=== PATIENT | male | born 1950 | race Caucasian/White ===

== ENCOUNTER → 2016-06-23 | Outpatient (CLI) | payer MEDICARE, BC ==
--- NOTE | 2016-06-23 09:14 | MR ---
EXAMINATION TYPE: MR shoulder LT wo con DATE OF EXAM: 06/23/2016 9:04 AM COMPARISON: NONE HISTORY: Left shoulder pain TECHNIQUE: Multiplanar, multisequence imaging of the left shoulder is performed without contrast. FINDINGS: There is intrasubstance signal within the distal portion of the supraspinatus and infraspinatus tendo ns. Findings compatible with tendinosis. Non through thickness partial intrasubstance tear of the dis azeb margin of the supraspinatus tendon with no retraction. Abnormal signal within the anterior superior labrum suggestive of labral tear. Biceps anchor and intr acapsular portion of the biceps tendon have a normal appearance. Biceps tendon is situated within the bicipital groove. There is a spur extending off the distal clavicle which results in significant mass effect upon the s upraspinatus tendon and muscle compatible with impingement. Cystic changes involving the head of the humerus likely post arthritic. IMPRESSION: 1. Tendinosis involving the supraspinatus and infraspinatus tendons with partial intrasubstance tear distal supraspinatus tendon. No through thickness tear or retraction. 2. Anterior superior labral tear 3. Impingement secondary to a spur extending off the distal clavicle.
== END ==
LOC: RADMRIMAIN 08:13
PROVIDERS: ATTEND Family Medicine
DX: S43.432A Superior glenoid labrum lesion of left shoulder, initial encounter (principal); M75.92 Shoulder lesion, unspecified, left shoulder

== ENCOUNTER → 2016-07-22 | Outpatient (CLI) | payer MEDICARE, BC ==
--- NOTE | 2016-07-22 11:34 | ECHOS ---
DATE OF SERVICE: 07/22/2016 AGE: 65Y SEX: M HT: 70 WT: 175 lbs. Protocol Rui: X Others: Stress Echo Stage: IV Dur. of Exercise: 11:30 *Heart Rate Blood Pressure *Rest: 78 Rest: 153/56 * *Max. Achieved: 122 Maximum BP: 191/62 85% PMHR: 133 100% PMHR: 156 *METS: 12 INDICATIONS: MEDICATIONS: Zoloft, Flexeril, tramadol. CLINICAL INFORMATION: Patient is on Zoloft, Flexeril, Tramadol. History of palpitations. Family history of coronary artery disease. History of smoking 1-1/2 packs of cigarettes a day for 35 years. Resting ECG shows sinus rhythm rate of blood 78 beats per minute, PA interval of 0.16, QRS 0.08, normal ST-T waves. Frequent PACs are noted. Utilizing a standard Rui protocol, a symptom limited treadmill test was performed. Patient exercised for a total of 11 minutes and 30 seconds, attained a peak heart rate of 122 beats, which is approximately 75% predicted maximum heart rate without reaching the 85% predicted maximum heart rate which is 133 beats per minute. Exercise test was terminated because of fatigue and shortness of breath, could not able to walk any longer. No ST segment deviations. No cardiac arrhythmias are noted throughout the study. Baseline images show normal thickening and contractility. Postexercise images shows improved contractility and thickening. Patient reached a maximum heart rate of 78% predicted maximum heart rate which is still incomplete but no evidence of any ( ) wall motion abnormalities noted at this level. 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 At 78% of predicted maximum heart rate, patient's study is normal, but an incomplete study. Patient's physical fitness is excellent reached a maximum activity level of 12 METs.
== END | disposition home or self-care (01) ==
LOC: RADNMMAIN 09:05
PROVIDERS: ATTEND Family Medicine
DX: R06.00 Dyspnea, unspecified (principal); Z88.0 Allergy status to penicillin; Z82.49 Family history of ischemic heart disease and other diseases of the circulatory system
CPT/HCPCS: 93017; 93350

== ENCOUNTER → 2018-02-26 | Outpatient (CLI) | payer MEDICARE, BC ==
[2018-02-26 11:19] LABS: Blood Urea Nitrogen 26 mg/dL (9-20)
--- NOTE | 2018-02-26 21:09 | MR ---
MRI CERVICAL SPINE: CLINICAL HISTORY: History of surgery on neck with cervical disc disease and pain. TECHNIQUE: Multiplanar, multisequence imaging of the cervical spine is performed without IV contrast. COMPARISON: None. FINDINGS: There is mild to moderate mucosal thickening involving the visualized portion of right maxi llary sinus on sagittal image 1. Sagittal images of the cervical spine show the craniocervical juncti on to appear within normal limits. The cervical and upper thoracic spinal cord is normal in course, caliber, and signal. There is slight grade 1 retrolisthesis of C2 on C3. The vertebral body heights are normal. Mild to moderate multilevel disc space narrowing and spurring is seen most prominent at C 6-C7 level. Multilevel small posterior disc herniations are effacing the anterior thecal sac extendin g into the upper thoracic spine on sagittal images. The bone marrow signal intensity is overall sligh tly heterogeneous. Axial images at C2-C3 level shows left paracentral disc protrusion effacing anterior thecal sac, bila teral neural foramina are patent on axial image 52. Axial images at C3-C4 level shows broad-based right paracentral disc protrusion effacing anterolatera l thecal sac and causing asymmetric [id number] right-sided neural foraminal narrowing. Left-juan pablo ed neural foramen is patent. Axial images at C4-C5 level show uncovertebral facet degenerative changes bilaterally causing moderat e left greater than right bilateral neural foraminal narrowing. Spinal canal is preserved. Axial images at C5-C6 level showed broad based posterior disc protrusion effacing anterior thecal sac and causing moderate to advanced right greater than left bilateral neural foraminal narrowing. Axial images at C6-C7 level shows broad-based lobulated disc protrusion effacing anterior thecal sac nearly up to ventral surface of spinal cord on axial image 19 and causing moderate left greater than right bilateral neural foraminal narrowing. Axial images at C7-T1 level shows central disc protrusion mildly facing anterior thecal sac with asym metric mild to moderate left-sided neural foraminal narrowing. Right-sided neural foramen is patent. IMPRESSION: Multilevel degenerative changes of cervical spine as detailed above, most prominent findi ngs are noted at C5-C6 and C6-C7 levels.
--- NOTE | 2018-02-26 21:56 | MR ---
EXAMINATION TYPE: MR neck wo/w con DATE OF EXAM: 02/26/2018 COMPARISON: None HISTORY: Dysphasia and neck mass. CONTRAST: Standard multiplanar, multisequence MRI departmental protocol utilizing 7.5 mL intravenous Gadavist g adolinium contrast. Imaging is performed of the neck without and with IV contrast. FINDINGS: Evaluation note is suboptimal as there is significant artifact degradation present. In julia tion location of mass not provided. No vitamin E marker is placed to help localize. No suspicious pre vertebral swelling is present. Thyroid gland is atrophic or small in size. There is moderate biapical pleural/parenchymal scarring. Slight asymmetry at level of left aryepiglottic fold is noted. No definitive greater than 1 cm neck adenopathy is seen. Visualized portion of parotid and submandibu lar glands is felt within normal limits. Patient is very little fat making evaluation suboptimal. IMPRESSION: Asymmetric thickening left aryepiglottic fold, correlation with contrast-enhanced neck CT is advised.
== END | disposition home or self-care (01) ==
LOC: RADMRIMAIN 10:43
PROVIDERS: ATTEND Otolaryngology Otolaryngology/Facial Plastic Surgery
DX: M99.71 Connective tissue and disc stenosis of intervertebral foramina of cervical region (principal); M50.23 Other cervical disc displacement, cervicothoracic region; M47.812 Spondylosis without myelopathy or radiculopathy, cervical region; R93.89 Abnormal findings on diagnostic imaging of other specified body structures
CPT/HCPCS: 82565; 84520; 70543; 72141; 36415; A9585

== ENCOUNTER → 2019-03-16 | Outpatient (CLI) | payer MEDICARE, BC ==
[2019-03-16 11:22] LABS: African American GFR (CKD) >90 (>60 ml/min/1.73 sqM); Blood Urea Nitrogen 26 mg/dL (9-20); Non-African American GFR(CKD) 84 (>60 ml/min/1.73 sqM)
--- NOTE | 2019-03-16 14:30 | NM ---
EXAMINATION TYPE: NM bone scan whole body DATE OF EXAM: 03/16/2019 COMPARISON: NONE HISTORY: Prostate carcinoma Delayed whole-body scanning was performed following the injection of 25 mCi Tc 99m MDP. Images acqui red 3 hours post injection. FINDINGS: There is intense focal uptake noted at the distal right clavicle/AC joint which could be degenerative in nature or posttraumatic in nature however metastatic disease is not excluded. The remainder of th e visualized axial and appendicular skeleton fail to demonstrate no evidence for additional hyperinte nse lesion. Mild degenerative uptake on left shoulder, lumbar spine and bilateral wrists and hands. IMPRESSION: There is intense focal uptake noted at the distal right clavicle/AC joint which could be degenerative in nature or posttraumatic in nature however metastatic disease is not excluded.
--- NOTE | 2019-03-16 14:46 | CT ---
EXAMINATION TYPE: CT pelvis w con DATE OF EXAM: 03/16/2019 COMPARISON: None HISTORY: Recent diagnosis of prostate cancer. CT DLP: 379.2 mGycm Automated exposure control for dose reduction was used. TECHNIQUE: Helical acquisition of images through the pelvis CONTRAST: Performed with Oral Contrast and with IV Contrast, patient injected with 100 mL of Isovue 300. FINDINGS: A relative lack of fat within the pelvis could limit evaluation, oral contrast is not cours ed overweight through the bowel. Some increased attenuation within the pelvic fat may be postprocedur al. LUNG BASES: Not included AORTA: No significant abnormality is appreciated. LIVER/GB: Incompletely evaluated PANCREAS: Incompletely seen SPLEEN: Not completely evaluated ADRENALS: No significant abnormality is seen. KIDNEYS: Large cystic focus associated with the posterior aspect of the left kidney measures 6.5 cm a nd likely represents simple cyst with smaller cortical cysts suspected in the posterior right kidney measuring 15 mm, kidneys are incompletely evaluated REPRODUCTIVE ORGANS: Prostate is enlarged and shows some associated calcification BOWEL: No significant abnormality is seen. FREE AIR: No Free Air visible. ASCITES: None visible. PELVIC ADENOPATHY: None visualized. RETROPERITONEAL ADENOPATHY: No Retroperitoneal Adenopathy visible. URINARY BLADDER: Bladder wall thickening may be due to chronic outlet obstruction or lack of distent ion, correlate to exclude cystitis OSSEOUS STRUCTURES: Degenerative disc changes are present at the lower lumbar spine, ankylosis prese nt at L3-4, there is facet arthropathy change, there is a spinal curvature. IMPRESSION: FINDINGS WITHIN THE URINARY BLADDER AND PROSTATE IS DESCRIBED. ADDITIONAL FINDINGS ABOVE.
== END | disposition home or self-care (01) ==
LOC: RADNMMAIN 10:29
PROVIDERS: ATTEND Urology
DX: C61 Malignant neoplasm of prostate (principal); Z88.1 Allergy status to other antibiotic agents
CPT/HCPCS: 82565; 84520; 72193; 36415; 78306; A9503; Q9967

== ENCOUNTER → 2019-04-17 | Outpatient (CLI) | payer MEDICARE, BC ==
[2019-04-17 11:28] LABS: Basophils % (A) 0 %; Eosinophils # (A) 0.1 k/uL (0-0.7); Eosinophils % (A) 1 %; HGB 15.3 gm/dL (13.0-17.5); Lymphocytes # (A) 1.4 k/uL (1.0-4.8); Lymphocytes % (A) 24 %; MCH 30.4 pg (25.0-35.0); MCHC 33.2 g/dL (31.0-37.0); MCV 91.7 fL (80.0-100.0); Mean Platelet Volume 7.2; Monocytes # (A) 0.3 k/uL (0-1.0); Monocytes % (A) 6 %; Neutrophils % (A) 68 %; Platelet Count 245 k/uL (150-450); RBC 5.02 m/uL (4.30-5.90); RDW 12.6 % (11.5-15.5); WBC 5.8 k/uL (3.8-10.6)
== END | disposition home or self-care (01) ==
LOC: LABPAT 10:35
PROVIDERS: ATTEND Urology
DX: Z01.812 Encounter for preprocedural laboratory examination (principal); C61 Malignant neoplasm of prostate; R53.83 Other fatigue
CPT/HCPCS: 36415; 85025; 86850; 86900; 86901

== ENCOUNTER 2019-04-24 11:13 | Day surgery (SDC) | payer MEDICARE, BC ==
[2019-04-20 13:30] VITALS: BMI 23.0
[~2019-04-24 11:13] MED LIST: DEXAMETHASONE SOD PHOSPHATE 10 MG/ML 1 ML VIAL IV ONE; HEPARIN SODIUM,PORCINE 5,000 UNIT/ML 1 ML VIAL SQ ONE; HYDROmorphone 0.5 MG/0.5 ML SYRINGE IVP PRN; LIDOCAINE 1% 20 ML VIAL (10MG/ML) FOR IV START INTRADERMA PRN; ONDANSETRON 4 MG/2 ML VIAL IVP ONE
--- NOTE | 2019-04-24 11:40 | P.GSHP ---
History of Present Illness H&P Date: 04/19/19 Chief Complaint: Prostate cancer The patient is a 68-year-old white male whose PSA level was 6.4 in November 2017. His PSA level increased to 7.2 in December 2018. RITCHIE revealed right-sided firmness. He underwent a prostate ultrasound, revealing a prostate volume of 31 mL. A total of 12 biopsies were performed. A biopsy at the left lateral base showed [place] 7 (3+4) adenocarcinoma (15%). 3 of 6 right-sided biopsies showed evidence of prostate cancer ([place] 8 at right lateral base, [place] 7 at right apex, and [place] 6 at right lateral apex). He underwent a computed tomography scan and bone scan for staging purposes, which demonstrated no evidence of metastases. Alternative treatment options were reviewed in detail with the patient and his . He has elected to undergo a robotic-assisted laparoscopic prostatectomy (RALP) with bilateral pelvic lymphadenectomy. A partial nerve sparing procedure will be performed on the left, but he is not a candidate for a right-sided nerve sparing procedure. - Constitutional Constitutional: Reports chills, Reports fever - EENT Ears, nose, mouth and throat: Reports nasal congestion - Genitourinary (Male) Genitourinary: Reports incontinence, Reports urinary frequency, Denies erectile dysfunction Past Medical History Past Medical History: No Reported History History of Any Multi-Drug Resistant Organisms: None Reported Past Surgical History: Hernia Repair, Orthopedic Surgery Additional Past Surgical History / Comment(s): sinus surgery, back surgery ,knee surgery ,manuelito shoulder, c-spine fusion Past Psychological History: Depression Smoking Status: Current every day smoker Past Alcohol Use History: None Reported Past Drug Use History: None Reported Medications and Allergies Home Medications Medication Instructions Recorded Confirmed Type Amoxicillin/Potassium Clav 1 each PO Q12HR #20 tab 12/03/13 Rx [Augmentin 875-125 Tablet] LORazepam [Ativan] 1 mg PO BID #20 tab 12/03/13 Rx Meclizine [Antivert] 25 mg PO TID #20 tab 12/03/13 Rx Ondansetron Odt [Zofran Odt] 4 mg PO Q8HR PRN #10 tab 12/03/13 Rx Sertraline [Zoloft] 50 mg PO DAILY 12/03/13 12/03/13 History Allergies Allergy/AdvReac Type Severity Reaction Status Date / Time tetracycline [Tetracycline] Allergy Swelling Verified 12/03/13 17:39 Surgical - Exam - General well developed, well nourished, no distress - Neck no masses, trachea midline - Respiratory normal respiratory effort, clear to auscultation - Cardiovascular Rhythm: regular Abnormal Heart Sounds: no systolic murmur, no diastolic murmur, no rub, no S3 Gallop, no S4 Gallop, no click, no other - Abdomen Abdomen: soft, non tender, no guarding, no rigid, no rebound - Genitourinary normal penis with no external lesions, testicles non-tender - Rectum Rectum: normal sphincter tone, no masses, other (Prostate moderately enlarged with right-sided firmness) - Psychiatric oriented to time, oriented to person, oriented to place, speech is normal, mem ory intact Assessment and Plan (1) Malignant neoplasm of prostate Status: Acute Code(s): C61 - MALIGNANT NEOPLASM OF PROSTATE SNOMED Code(s): 906115204 Plan: RALP with bilateral pelvic lymphadenectomy. The procedure has been reviewed in detail with the patient and his . Potential risks were discussed, which include anesthesia, bleeding, infection, lymphocele, bowel injury, neurovascular injury, urinary leak, vesical neck contracture, and urethral stricture. The possible need to convert to an open procedure has been discussed. He understands that he a candidate only for a unilateral nerve sparing procedure, and that he will likely experience postoperative erectile dysfunction. The possibility of post prostatectomy urinary incontinence was discussed in detail, and he is aware that this may be permanent. He is also aware of the possible need for adjuvant therapy.
[2019-04-24] MEDS: LACTATED RINGERS 1,000 ML IV SCH (11:53)
[2019-04-24] MEDS ORDERED: GLYCOPYRROLATE 0.2 MG/ML 2 ML VIAL ONE (12:28)
[2019-04-24] MEDS ORDERED: MIDAZOLAM 2 MG/2 ML VIAL ONE (12:28)
[2019-04-24] MEDS ORDERED: LIDOCAINE 1% INJ 10MG/ML (20 ML MDV) ONE (12:28)
[2019-04-24] MEDS ORDERED: NEOSTIGMINE 1 MG/ML 10 ML VIAL ONE (12:28)
[2019-04-24] MEDS ORDERED: ROCURONIUM BROMIDE 10 MG/ML 10 ML VIAL IV ONE (12:28)
[2019-04-24] MEDS ORDERED: HYDROmorphone (PF) 1 MG/ML ONE (12:28)
[2019-04-24] MEDS ORDERED: PROPOFOL 10 MG/ML 20 ML VIAL IV ONE (12:28)
[2019-04-24] MEDS ORDERED: KETAMINE 10 MG/ML 20 ML VIAL ONE (12:28)
[2019-04-24] MEDS ORDERED: fentaNYL (PF) 50 MCG/ML 2 ML AMP ONE (12:28)
[2019-04-24] MEDS ORDERED: BUPIVACAINE (PF) 0.25% 30 ML VIAL SQ ONE (13:20)
[2019-04-24] MEDS ORDERED: LACTATED RINGERS 1,000 ML IV ONE (15:49)
--- NOTE | 2019-04-24 16:19 | P.OP ---
Date of Procedure: 04/24/19 Preoperative Diagnosis: Adenocarcinoma of the Prostate, clinical stage [id number] Postoperative Diagnosis: Same Procedure(s) Performed: Robotic-assisted laparoscopic prostatectomy (RALP) with bilateral pelvic lymphadenectomy Anesthesia: HOMAR Surgeon: Martir Finley Estimated Blood Loss (ml): 50 IV fluids (ml): 1,500 Pathology: other (Prostate, seminal vesicles, pelvic lymph nodes) Condition: stable Disposition: PACU Indications for Procedure: The patient is a 68-year-old white male whose PSA level was 6.4 in November 2017. His PSA level increased to 7.2 in December 2018. RITCHIE revealed right-sided firmness. He underwent a prostate ultrasound, revealing a prostate volume of 31 mL. A total of 12 biopsies were performed. A biopsy at the left lateral base showed [place] 7 (3+4) adenocarcinoma (15%). 3 of 6 right-sided biopsies showed evidence of prostate cancer ([place] 8 at right lateral base, [place] 7 at right apex, and [place] 6 at right lateral apex). He underwent a computed tomography scan and bone scan for staging purposes, which demonstrated no evidence of metastases. Alternative treatment options were reviewed in detail with the patient and his . He has elected to undergo a robotic-assisted laparoscopic prostatectomy (RALP) with bilateral pelvic lymphadenectomy. A partial nerve sparing procedure will be performed on the left, but he is not a candidate for a right-sided nerve sparing procedure. Operative Findings: No evidence of extraprostatic disease. Description of Procedure: The patient was taken in the operating room and placed in the dorsal lithotomy position, with his legs supported in Ruddy stirrups. He was carefully positioned on a beanbag for stability. The abdomen and external genitalia were prepped and draped sterilely. A De catheter was inserted. The Veress needle was passed through the anterior abdominal wall immediately cephalad to the umbilicus, and insufflation was performed to a pressure of 20 mm Hg. Once insufflation was performed, the Veress needle was removed and a supraumbilical incision was made, through which a 12 mm camera port was placed. Under camera guidance, 3 8 mm robotic ports were placed, 2 on the left and one on the right. An additional 12 mm port was placed on the right lateral side for use as an virtual customer assistant port. A 5 mm port was placed to the right of the camera port for suction. The patient was placed in Trendelenburg position, and docking was then performed to the da Salbador system utilizing a 4-arm approach. The abdomen was examined. The sigmoid colon was mobilized out of the pelvis. The peritoneum was incised lateral to the medial umbilical ligaments bilaterally, exposing the pubis. The peritoneum was then incised across the midline, allowing the bladder flap to be taken down. The endopelvic fascia was opened bilaterally, and muscular attachments from the urogenital diaphragm were swept away from the prostate. Bilateral pelvic lymphadenectomies were performed in the standard fashion. The peritoneal incisions were extended in a cephalad direction, and the vas deferens were divided bilaterally. Margins of dissection were the bifurcation of the iliac vessels proximally, the circumflex iliac vein distally, the external iliac artery laterally, and the obturator nerve medially. A combination of sharp and blunt dissection was used. Care was taken to avoid any neurovascular injury, a nd the use of monopolar electrocautery was avoided immediately adjacent to neurovascular structures. The lymphatic package was clipped distally. No enlarged lymph nodes were encountered. There were no complications. The vesical neck was incised transversely, down to the lumen. The De catheter was brought out through the anterior vesical neck incision and was used for traction. The posterior aspect of the vesical neck was incised, such that the full-thickness of the vesical neck was divided. The anterior layer of the Denonvilliers fascia was incised, exposing the vas deferens. Each were isolated and divided. Next, each of the seminal vesicles were dissected away from adjacent tissues, and vascular attachments were cauterized and divided. The posterior leaf of Denonvilliers fascia was incised transversely, allowing entry into the plane between the prostate and rectum. With lateral spreading, this plane was developed down to the apex. This exposed the lateral vascular pedic les bilaterally. These were clipped and divided in an antegrade fashion, down to the apex. The use of electrocautery was avoided on the left to prevent thermal damage to the nerves. No attempt was made to preserve the neurovascular bundle on the right. A partial nerve sparing procedure was performed on the left. The remaining apical attachments were swept away from the prostate. The dorsal venous complex was incised, as well as periurethral tissue. At this point, only the urethra remained intact. This was transected immediately distal to the prostatic apex using cold scissors. The specimen was placed within a specimen bag. The dorsal venous complex was sutured using a V-Loc suture in a running fashion. The suture was passed through the periosteum of the pubis periurethral support. A second V-Loc suture was then used to place the Charlie stitch, incorporating the rhabdosphincter and the edge of Denonvilliers fascia. This allowed the bladder to be taken down to the urethra, leaving the vesical neck immediately adjacent to the urethra. The vesicourethral anastomosis was then performed using a V-Loc suture in a running fashion. After completing the anastomosis, an 18-[place] De catheter was placed and approximately 150 mL of 0.9 normal saline were instilled into the bladder. No extravasation of irrigant from the vesicourethral anastomosis was noted. Hemostasis was noted at this time to be excellent, and it was thus felt that a drain was unnecessary. Tisseel was sprayed into the pelvis over the vascular pedicles, dorsal vein, and vesicourethral anastomosis. The patient was returned to the supine position. Undocking was performed, and the specimen bag sutures were passed through the camera port. After removing all the ports and allowing all of the CO2 to be released from the peritoneal cavity, the camera port incision was enlarged to allow removal of the surgical specimen. The fascia of this incision was then closed using 0 Vicryl suture in an interrupted [id number] fashion. Each of the skin incisions were then closed using 4-0 Monocryl suture in a subcuticular fashion. Marcaine was injected at each of the incision sites. Dermabond was applied to each incision. The De catheter was connected to gravity drainage. All sponge and needle counts were correct. The patient tolerated the procedure well was taken to the recovery room in stable condition.
[2019-04-24] MEDS ORDERED: ONDANSETRON 4 MG/2 ML VIAL IVP PRN (16:20)
[2019-04-24] MEDS ORDERED: MAG HYDROX/AL HYDROX/SIMETH 30 ML CUP PO PRN (16:20)
[2019-04-24 16:34] VITALS: RESP 16
[2019-04-24] MEDS: KETOROLAC 30 MG/ML 1 ML VIAL IVP PRN (17:59)
[2019-04-24] MEDS: HYDROmorphone 1 MG/ML 1 ML SYRINGE IVP PRN (19:55)
[2019-04-24] MEDS: DEXTROSE 5%-0.45% NACL 1,000 ML IV SCH (19:55)
[2019-04-24] MEDS: HEPARIN SODIUM,PORCINE 5,000 UNIT/ML 1 ML VIAL SQ SCH (19:55)
[2019-04-25] MEDS: KETOROLAC 30 MG/ML 1 ML VIAL IVP PRN
[2019-04-25] MEDS: DEXTROSE 5%-0.45% NACL 1,000 ML IV SCH ×2 (01:16→05:21)
[2019-04-25] MEDS: HYDROmorphone 1 MG/ML 1 ML SYRINGE IVP PRN ×2 (02:33→05:20)
[2019-04-25] MEDS ORDERED: HYDROcodone/APAP 5-325MG 1 EACH TAB PO PRN (08:27)
[2019-04-25] MEDS: HEPARIN SODIUM,PORCINE 5,000 UNIT/ML 1 ML VIAL SQ SCH (08:32)
[2019-04-25] MEDS: HYDROcodone/APAP 5-325MG 1 EACH TAB PO PRN ×2 (08:44→12:24)
[2019-04-25] MEDS ORDERED: SERTRALINE 50 MG TAB PO SCH (09:00)
[2019-04-25 09:03] VITALS: BP 133/68; PULSE 59; TEMP 98.2
--- NOTE | 2019-04-25 17:24 | P.DS ---
Providers Expected date of discharge: 04/25/19 Attending physician: Martir Finley Primary care physician: Dimitris Brisenolo - Discharge Diagnosis(es) (1) Malignant neoplasm of prostate Status: Acute Hospital Course: On the day of admission, the patient underwent an uncomplicated robotic-assisted laparoscopic prostatectomy with bilateral pelvic lymphadenectomy. The perioperative course was unremarkable. He remained afebrile with stable vital signs. The De catheter drained clear yellow urine. The incisions were intact, with minimal serous drainage from the supraumbilical incision. On the first postoperative day, the patient reported gas pains which were relieved by belching. He tolerated diet, and ambulated without difficulty. His pain was controlled with oral analgesics. Procedures: RALP with bilateral pelvic lymphadenectomy on 04/24/2019 Patient Condition at Discharge: Good Plan - Discharge Summary Discharge Rx Participant: Yes New Discharge Prescriptions: New Ciprofloxacin HCl [Cipro] 250 mg PO Q12HR #6 tablet Hydrocodone/Acetaminophen [[place] 5-325] 1 - 2 each PO Q4HR PRN #6 tab PRN Reason: Pain No Action Sertraline [Zoloft] 50 mg PO QAM Cyclobenzaprine [Flexeril] 10 mg PO BID Meloxicam 7.5 mg PO BID Discharge Medication List Sertraline [Zoloft] 50 mg PO QAM 12/03/13 [History] Cyclobenzaprine [Flexeril] 10 mg PO BID 04/20/19 [History] Meloxicam 7.5 mg PO BID 04/20/19 [History] Ciprofloxacin HCl [Cipro] 250 mg PO Q12HR #6 tablet 04/25/19 [Rx] Hydrocodone/Acetaminophen [[place] 5-325] 1 - 2 each PO Q4HR PRN #6 tab 04/25/19 [Rx] Follow up Appointment(s)/Referral(s): Martir Finley MD [STAFF PHYSICIAN] - 05/04/19 1:20 pm ( ) Patient Instructions/Handouts: De Catheter Placement and Care (DC), Robot Assisted Laparoscopic Prostatectomy (DC) Activity/Diet/Wound Care/Special Instructions: Discharge home with De catheter. Instruct patient to use overnight drainage bag as well as urinary leg bag. Okay to shower. Diet as tolerated. No lifting, driving, or strenuous activity. Reassure patient that abdominal wall ecchymosis and penoscrotal swelling are normal. Instruct patient to begin takin g antibiotics one day prior to De catheter removal. Discharge Disposition: HOME SELF-CARE
== END 2019-04-25 15:06 | disposition home or self-care (01) ==
LOC: OR 11:13 → 4SSUR 16:13 → OR 04-25 15:06
PROVIDERS: ATTEND Urology
DX: C61 Malignant neoplasm of prostate (principal); F17.210 Nicotine dependence, cigarettes, uncomplicated; F32.9 Major depressive disorder, single episode, unspecified; Z79.899 Other long term (current) drug therapy; Z88.1 Allergy status to other antibiotic agents; Z98.890 Other specified postprocedural states; Z98.1 Arthrodesis status
CPT/HCPCS: 88307; 88309; 55866; 38571; C1762; J2250; J1644 ×2; J1100; J2710; J0690; J2405; J2001; J3010; J1885 ×2; J1170 ×3; J2704; 86850; 86900; 86901

== ENCOUNTER → 2019-05-30 | Outpatient (CLI) | payer MEDICARE, BC | END | disposition home or self-care (01) | LOC: LABWHC1 09:26 | PROVIDERS: ATTEND Urology | DX: C61 Malignant neoplasm of prostate (principal) | CPT/HCPCS: 36415; 84153 ==

== ENCOUNTER → 2019-08-17 | Outpatient (CLI) | payer MEDICARE, BC ==
[2019-08-17 11:51] LABS: Basophils % (A) 1 %; Eosinophils # (A) 0.1 k/uL (0-0.7); Eosinophils % (A) 1 %; HCT 46.1 % (39.0-53.0); HGB 14.5 gm/dL (13.0-17.5); Lymphocytes # (A) 1.8 k/uL (1.0-4.8); Lymphocytes % (A) 27 %; MCH 27.8 pg (25.0-35.0); MCHC 31.4 g/dL (31.0-37.0); MCV 88.7 fL (80.0-100.0); Mean Platelet Volume 6.8; Monocytes # (A) 0.3 k/uL (0-1.0); Monocytes % (A) 5 %; Neutrophils # (A) 4.4 k/uL (1.3-7.7); Neutrophils % (A) 65 %; Platelet Count 285 k/uL (150-450); RDW 14.8 % (11.5-15.5); WBC 6.8 k/uL (3.8-10.6)
[2019-08-17 12:20] LABS: African American GFR (CKD) >90 (>60 ml/min/1.73 sqM); Anion Gap 8 mmol/L; Blood Urea Nitrogen 23 mg/dL (9-20); Calcium 9.3 mg/dL (8.4-10.2); Carbon Dioxide 28 mmol/L (22-30); Chloride 103 mmol/L (98-107); Glucose 104 mg/dL (74-99); Non-African American GFR(CKD) >90 (>60 ml/min/1.73 sqM); Potassium 4.1 mmol/L (3.5-5.1); Sodium 139 mmol/L (137-145)
== END | disposition home or self-care (01) ==
LOC: LABPAT 10:32
PROVIDERS: ATTEND Urology
DX: Z01.818 Encounter for other preprocedural examination (principal); D49.4 Neoplasm of unspecified behavior of bladder
CPT/HCPCS: 80048; 85025

== ENCOUNTER 2019-08-18 12:30 | Day surgery (SDC) | payer MEDICARE, BC ==
[2019-08-17 09:22] VITALS: BMI 23.7
--- NOTE | 2019-08-17 10:23 | P.GSHP ---
History of Present Illness H&P Date: 08/17/19 Chief Complaint: Bladder outflow obstruction The patient is a 68-year-old white male whose PSA level was 6.4 in November 2017. His PSA level increased to 7.2 in December 2018. RITCHIE revealed right-sided firmness. He underwent a prostate ultrasound, revealing a prostate volume of 31 mL. A total of 12 biopsies were performed. A biopsy at the left lateral base showed [place] 7 (3+4) adenocarcinoma (15%). 3 of 6 right-sided biopsies showed evidence of prostate cancer ([place] 8 at right lateral base, [place] 7 at right apex, and [place] 6 at right lateral apex). He underwent a computed tomography scan and bone scan for staging purposes, which demonstrated no evidence of metastases. He underwent a robotic-assisted laparoscopic prostatectomy (RALP) with bilateral pelvic lymphadenectomy on 04/24/2019. He has recovered well from surgery, but has required treatment for 2 Klebsiella UTIs. He reports excellent continence, but he recently presented back with intermittent obstructive voiding symptoms and he was found to have a 1 cm polypoid lesion arising from the right vesical neck. He now comes for excision of this lesion using the Holmium laser. - Constitutional Constitutional: Denies chills, Denies fever - Genitourinary (Female) Genitourinary: Reports urgency, Denies dysuria Past Medical History Past Medical History: Cancer, Musculoskeletal Disorder, Osteoarthritis (OA), Prostate Disorder Additional Past Medical History / Comment(s): Squamous cell cancer leg. Prostate Cancer w/ surg 04/24/19; having diff urinating currently. 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 Pineda abd hernia's w/ mesh. Rhizotomy, pain procedures. 04/24/19 Robotic Prostatectomy w/ pineda pelvic lymph node exc. Past Anesthesia/Blood Transfusion Reactions: Previous Problems w/ Anesthesia, Motion Sickness Additional Past Anesthesia/Blood Transfusion Reaction / Comment(s): Was mean, angry w/ personality changes after prostate surg. Smoking Status: Current every day smoker - Past Family History Father Family Medical History: Cancer Additional Family Medical History / Comment(s): lymphoma Medications and Allergies Home Medications Medication Instructions Recorded Confirmed Type Sertraline [Zoloft] 50 mg PO QAM 12/03/13 08/17/19 History Cyclobenzaprine [Flexeril] 10 mg PO BID 04/20/19 08/17/19 History Meloxicam 7.5 mg PO BID 04/20/19 08/17/19 History Multivitamins, Thera [Multivitamin 1 tab PO DAILY 08/17/19 08/17/19 History (formulary)] Allergies Allergy/AdvReac Type Severity Reaction Status Date / Time tetracycline [Tetracycline] Allergy Swelling Verified 08/17/19 08:51 Surgical - Exam - General well developed, well nourished, no distress - Respiratory normal respiratory effort - Abdomen Abdomen: soft, non tender, no guarding, no rigid, no rebound - Genitourinary normal penis with no external lesions, testicles non-tender - Psychiatric oriented to time, oriented to person, oriented to place, speech is normal, memory intact Assessment and Plan (1) Neoplasm of unspecified behavior of bladder Status: Acute Code(s): D49.4 - NEOPLASM OF UNSPECIFIED BEHAVIOR OF BLADDER SNOMED Code(s): 714761489 Plan: Cystoscopy, transurethral resection of vesical neck tumor. The lesion arises from the right lateral vesical neck and essentially functions as a flap valve, causing intermittent obstruction. I explained to the patient that any vesical neck surgery following a radical prostatectomy may result in urinary incontinence. The procedure will be performed using the Holmium laser rather than the resectoscope, as I believe it will be less traumatic and less likely to result in incontinence.
[~2019-08-18 12:30] MED LIST changes: -DEXAMETHASONE SOD PHOSPHATE 10 MG/ML 1 ML VIAL IV ONE; -HEPARIN SODIUM,PORCINE 5,000 UNIT/ML 1 ML VIAL SQ ONE; +LACTATED RINGERS 1,000 ML IV SCH; +LIDOCAINE 1% (10MG/ML) FOR IV START INTRADERMA PRN; -LIDOCAINE 1% 20 ML VIAL (10MG/ML) FOR IV START INTRADERMA PRN
[2019-08-18 13:34] VITALS: RESP 16
[2019-08-18] MEDS ORDERED: DEXAMETHASONE SOD PHOS (MDV) 100 MG/10 ML VIAL IVP ONE (13:45)
[2019-08-18] MEDS ORDERED: SUCCINYLCHOLINE CHLORIDE 100 MG/5 ML SYR IV ONE (14:49)
[2019-08-18] MEDS ORDERED: MIDAZOLAM 2 MG/2 ML VIAL ONE (14:49)
[2019-08-18] MEDS ORDERED: LIDOCAINE 1% INJ 10MG/ML (20 ML MDV) ONE (14:49)
[2019-08-18] MEDS ORDERED: fentaNYL (PF) 50 MCG/ML 2 ML AMP ONE (14:49)
[2019-08-18] MEDS ORDERED: PROPOFOL 10 MG/ML 20 ML VIAL IV ONE (14:49)
[2019-08-18 15:51] VITALS: TEMP 97.8
--- NOTE | 2019-08-18 16:32 | P.OP ---
Date of Procedure: 08/18/19 Preoperative Diagnosis: Bladder neoplasm of uncertain behavior Postoperative Diagnosis: Same Procedure(s) Performed: Cystoscopy, transurethral resection (laser) of vesical neck neoplasm Anesthesia: ZAHRAA Surgeon: Martir Finley Estimated Blood Loss (ml): 5 IV fluids (ml): 400 Pathology: other (Lesion arising from right anterior vesical neck.) Condition: stable Disposition: PACU Indications for Procedure: The patient is a 68-year-old white male whose PSA level was 6.4 in November 2017. His PSA level increased to 7.2 in December 2018. IRTCHIE revealed right-sided firmness. He underwent a prostate ultrasound, revealing a prostate volume of 31 mL. A total of 12 biopsies were performed. A biopsy at the left lateral base showed [place]cia 7 (3+4) adenocarcinoma (15%). 3 of 6 right-sided biopsies showed evidence of prostate cancer ([place] 8 at right lateral base, [place] 7 at right apex, and [place] 6 at right lateral apex). He underwent a computed tomography scan and bone scan for staging purposes, which demonstrated no evidence of metastases. He underwent a robotic-assisted laparoscopic prostatectomy (RALP) with bilateral pelvic lymphadenectomy on 04/24/2019. He has recovered well from surgery, but has required treatment for 2 Klebsiella UTIs. He reports excellent continence, but he recently presented back with intermittent obstructive voiding symptoms and he was found to have a 1 cm polypoid lesion arising from the right vesical neck. He now comes for excision of this lesion using the Holmium laser. Operative Findings: 1 cm polypoid lesion arising from right anterior vesical neck. Description of Procedure: The patient was taken to the operating room and placed in the dorsolithotomy position, with legs supported in Ruddy stirrups. The external genitalia was prepped and draped sterilely. The 30 lens was used to introduce the 17-Sudanese Stortz cystoscopic sheath through the urethra and into the bladder under direct vision. The prostate is absent. A 1 cm polypoid lesion arises from the right anterior vesical neck, measuring approximately 1 cm in size. The bladder was examined in its entirety. Both ureteral orifices were normal anatomic location and configuration. The entire bladder was examined. No tumors or foreign bodies were seen. The 365 holmium laser probe was passed through the cystoscope. This was used to incise the base of the lesion, excising it from the vesical neck. The lesion was too large to pass through the 17-Sudanese cystoscope, and therefore the 19-Sudanese cystoscopic sheath was passed into the bladder, allowing removal of the specimen. The bladder was emptied and the cystoscope removed. An attempt was made to pass an 18-Sudanese Ed catheter, but resistance was met at the vesical neck. A 16-Sudanese coud-tip catheter was easily passed into the bladder. The return was clear. The patient tolerated the procedure well and was taken to the recovery room in stable condition.
[2019-08-18 17:42] VITALS: BP 125/78; PULSE 70
== END 2019-08-18 17:36 | disposition home or self-care (01) ==
LOC: OR 12:30
PROVIDERS: ATTEND Urology
DX: D41.4 Neoplasm of uncertain behavior of bladder (principal); N30.80 Other cystitis without hematuria; M47.892 Other spondylosis, cervical region; M42.00 Juvenile osteochondrosis of spine, site unspecified; F17.210 Nicotine dependence, cigarettes, uncomplicated; Z11.59 Encounter for screening for other viral diseases; Z85.46 Personal history of malignant neoplasm of prostate; Z87.440 Personal history of urinary (tract) infections; Z90.79 Acquired absence of other genital organ(s); Z85.828 Personal history of other malignant neoplasm of skin; Z98.890 Other specified postprocedural states; Z98.1 Arthrodesis status; Z91.89 Other specified personal risk factors, not elsewhere classified; Z87.898 Personal history of other specified conditions; Z79.899 Other long term (current) drug therapy; Z88.1 Allergy status to other antibiotic agents; Z97.2 Presence of dental prosthetic device (complete) (partial); Z80.7 Family history of other malignant neoplasms of lymphoid, hematopoietic and related tissues
CPT/HCPCS: 52500; 88305; 87635; J2250; J0690; J2405; J2001; J3010; J1100; J0330; J2704

== ENCOUNTER → 2019-08-22 | Outpatient (CLI) | payer MEDICARE, BC ==
--- NOTE | 2019-08-22 15:55 | XR ---
EXAMINATION TYPE: XR Hip Bilateral Complete DATE OF EXAM: 08/22/2019 COMPARISON: None HISTORY: Bilateral hip pain TECHNIQUE: Bilateral hips are examined in 2 views each. FINDINGS: Femoral heads articulate with the acetabulum. Joint spaces appear preserved. No acute fract ures or dislocations are evident. IMPRESSION: 1. Normal bilateral hips.
== END | disposition home or self-care (01) ==
LOC: RADXRMAIN 15:35
PROVIDERS: ATTEND Family Medicine
DX: M25.559 Pain in unspecified hip (principal)
CPT/HCPCS: 73521

== ENCOUNTER → 2019-09-14 | Outpatient (CLI) | payer MEDICARE, BC | END | disposition home or self-care (01) | LOC: LABWHC1 12:10 | PROVIDERS: ATTEND Urology | DX: C61 Malignant neoplasm of prostate (principal) | CPT/HCPCS: 36415; 84153 ==

== ENCOUNTER 2019-10-04 07:40 | Emergency (ER) | payer MEDICARE, BC ==
[2019-10-04 08:24] LABS: Appearance,Urine Clear (Clear); Bilirubin,Urine Negative (Negative); Blood,Urine Trace (Negative); Color,Urine Colorless; Glucose,Urine (UA) Negative (Negative); Ketones,Urine Negative (Negative); Leukocyte Esterase,Urine Moderate (Negative); Mucus,Urine Rare /hpf; Nitrite,Urine Negative (Negative); PH, Urine 6.5 (5.0-8.0); Protein,Urine Negative (Negative); RBC,Urine 1 /hpf (0-5); Specific Gravity,Urine 1.002 (1.001-1.035); Urobilinogen,Urine <2.0 mg/dL (<2.0); WBC,Urine 1 /hpf (0-5)
--- NOTE | 2019-10-04 08:28 | ED ---
Recheck HPI - General Chief Complaint: Recheck/Abnormal Lab/Rx Stated Complaint: Groin pain Time Seen by Provider: 10/04/19 07:53 Source: patient, RN notes reviewed Mode of arrival: ambulatory Limitations: no limitations - History of Present Illness Initial Comments: 69-year-old male presents emergency Department chief complaint of bilateral groin pain. Patient states his started approximately month ago. Patient states started after helping a friend do some fencing. He did not feel any discomfort while doing that states approximately one hour after he started having severe pain. He states it is at the point where is difficult to walk causes pain. Patient states he saw his primary care physician. X-rays were negative for any acute findings. He is placed in steroids he states when he is on the high dose of steroids it did help. Patient states the pain actually seemed to improve and he had tended days states the pain is progressively worsening again after doing more physical labor. Patient does admit that in April he had prostate surgery by Dr. Finley and is also had 2 hernia repairs with mesh. Patient states that he is recommended advise primary care physician to go to emergency department for MRI. Patient has no pain with palpation denies any nausea vomiting diarrhea constipation no dysuria no hematuria. Patient has fevers chills no chest pain or shortness breath no flank pain no back pain denies any bowel bladder incontinence or retention. - Related Data Home Medications Medication Instructions Recorded Confirmed Sertraline [Zoloft] 50 mg PO QAM 12/03/13 10/04/19 Cyclobenzaprine [Flexeril] 10 mg PO TID 04/20/19 10/04/19 Meloxicam 7.5 mg PO BID 04/20/19 10/04/19 Multivitamins, Thera [Multivitamin 1 tab PO DAILY 08/17/19 10/04/19 (formulary)] Previous Rx's Medication Instructions Recorded Ibuprofen [Motrin] 600 mg PO Q8HR PRN #20 tab 10/04/19 Allergies Allergy/AdvReac Type Severity Reaction Status Date / Time tetracycline [Tetracycline] Allergy Swelling Verified 10/04/19 09:12 Review of Systems ROS Statement: Those systems with pertinent positive or pertinent negative responses have been documented in the HPI. ROS Other: All systems not noted in ROS Statement are negative. Past Medical History Past Medical History: Cancer, Musculoskeletal Disorder, Osteoarthritis (OA), Prostate Disorder Additional Past Medical History / Comment(s): Squamous cell cancer leg. Prostate Cancer w/ surg 04/24/19; having diff urinating currently. 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 Pineda abd hernia's w/ mesh. Rhizotomy, pain procedures. 04/24/19 Robotic Prostatectomy w/ pineda pelvic lymph node exc. Past Anesthesia/Blood Transfusion Reactions: Previous Problems w/ Anesthesia, Motion Sickness Additional Past Anesthesia/Blood Transfusion Reaction / Comment(s): Was mean, angry w/ personality changes after prostate surg. Past Psychological History: Depression Smoking Status: Current every day smoker Past Alcohol Use History: None Reported Past Drug Use History: None Reported - Past Family History Father Family Medical History: Cancer General Exam Limitations: no limitations General appearance: alert, in no apparent distress Head exam: Present: atraumatic, normocephalic, normal inspection Neck exam: Present: normal inspection. Absent: tenderness, meningismus, lymphadenopathy Respiratory exam: Present: normal lung sounds bilaterally. Absent: respiratory distress, wheezes, rales, rhonchi, stridor Cardiovascular Exam: Present: regular rate, normal rhythm, normal heart sounds. Absent: systolic murmur, diastolic murmur, rubs, gallop, clicks GI/Abdominal exam: Present: soft, normal bowel sounds. Absent: distended, tenderness, guarding, rebound, rigid exam: Present: normal inspection, other (No tenderness) Extremities exam: Present: other (Full range of motion of bilateral lower extremities neurovascular intact there is no pain with range of motion.) Skin exam: Present: warm, dry, intact, normal color. Absent: rash Course Vital Signs 10/04/19 07:46 Temperature 98.0 F Pulse Rate 100 Respiratory 18 Rate Blood Pressure 157/80 O2 Sat by Pulse 99 Oximetry Medical Decision Making - Medical Decision Making 69-year-old male presented for bilateral groin pain. Patient's primary care physician recommended to emergency department for further imaging. Imaging does not show any significant abnormality's. Patient symptoms enumerated to muscle skeletal injury possible groin strain. Patient advised to do no heavy lifting he is advised to follow-up with orthopedics for possible physical therapy. Patient's urinalysis unremarkable he has no tenderness of his abdomen vitals are stable. - Lab Data Lab Results 10/04/19 Range/Units 08:11 Urine Color Colorless Urine Appearance Clear (Clear) Urine pH 6.5 (5.0-8.0) Ur Specific [place] 1.002 (1.001-1.035) Urine Protein Negative (Negative) Urine Glucose (UA) Negative (Negative) Urine Ketones Negative (Negative) Urine Blood Trace H (Negative) Urine Nitrite Negative (Negative) Urine Bilirubin Negative (Negative) Urine Urobilinogen <2.0 (<2.0) mg/dL Ur Leukocyte Esterase Moderate H (Negative) Urine RBC 1 (0-5) /hpf Urine WBC 1 (0-5) /hpf Urine Mucus Rare H (None) /hpf Disposition Clinical Impression: Strain of groin Disposition: HOME SELF-CARE Condition: Stable Instructions (If sedation given, give patient instructions): Groin Strain (ED) Additional Instructions: Please return to the Emergency Department if symptoms worsen or any other concerns. Prescriptions: Ibuprofen [Motrin] 600 mg PO Q8HR PRN #20 tab PRN Reason: Pain Is patient prescribed a controlled substance at d/c from ED?: No Referrals: Dimitris Ford DO [Primary Care Provider] - 1-2 days Pierre Persaud MD [STAFF PHYSICIAN] - 1-2 days Time of Disposition: 09:16
--- NOTE | 2019-10-04 08:58 | CT ---
EXAMINATION TYPE: CT abdomen pelvis wo con DATE OF EXAM: 10/04/2019 COMPARISON: CT pelvis 03/16/2019 HISTORY: Bilateral groin pain CT DLP: 468.80 mGycm Automated exposure control for dose reduction was used. TECHNIQUE: Helical acquisition of images from the lung bases through the pelvis. FINDINGS: Lack of intravenous contrast could compromise sensitivity LUNG BASES: There are mild to moderate emphysematous changes present, no pleural pericardial effusion . AORTA: Atheromatous changes are present in the abdominal aorta. LIVER/GB: Low dense focus left lobe of liver on axial image 13 measures only 8 to 9 mm may represent a small cyst, gallbladder is unremarkable. PANCREAS: No significant abnormality is seen. SPLEEN: No significant abnormality is seen. ADRENALS: No significant abnormality is seen. KIDNEYS: Left kidney shows an associated low dense focus exophytic at the lower pole as on prior exam , midpole the right kidney also shows a low dense focus similar to prior exam and likely representati ve of cortical cysts. There is no hydronephrosis. Left kidney is malrotated. There is no nephrolithia sis, no evident ureteral calculus.. REPRODUCTIVE ORGANS: Suspect interval prostatectomy, correlate with surgical history. URINARY BLADDER: Mildly thickened wall, correlate for cystitis or possibly chronic bladder outlet ob struction. BOWEL: No significant abnormality is seen, cecum is somewhat deviated medially at the midline, appen eugene not definitively seen. FREE AIR: No Free Air is visible. ASCITES: None visible. PELVIC ADENOPATHY: None visualized. RETROPERITONEAL ADENOPATHY: No Retroperitoneal Adenopathy visible. OSSEOUS STRUCTURES: Degenerative disc changes are present in the visualized lumbar spine, there is a ssociated ankylosis at L3-4, multilevel facet arthropathy, arthropathy also present in the hips. IMPRESSION: NONCONTRAST EXAM. SUSPECT INTERVAL SURGERY DESCRIBED. ADDITIONAL NONSPECIFIC FINDINGS ABOVE, COPD.
[2019-10-04] MEDS ORDERED: ACET/COD 300 MG/30 MG STARTER PACK 6 TAB BTL PO STA (09:17)
[2019-10-04 10:03] VITALS: BP 122/78; PULSE 70; RESP 17; TEMP 98
== END 2019-10-04 10:03 | disposition home or self-care (01) ==
LOC: EC 07:40
DX: S39.011A Strain of muscle, fascia and tendon of abdomen, initial encounter (principal); F32.9 Major depressive disorder, single episode, unspecified; M19.90 Unspecified osteoarthritis, unspecified site; F17.200 Nicotine dependence, unspecified, uncomplicated; Z79.1 Long term (current) use of non-steroidal anti-inflammatories (NSAID); Z79.899 Other long term (current) drug therapy; Z88.1 Allergy status to other antibiotic agents; Z85.828 Personal history of other malignant neoplasm of skin; Z85.46 Personal history of malignant neoplasm of prostate; Z90.79 Acquired absence of other genital organ(s); Z80.9 Family history of malignant neoplasm, unspecified; X50.0XXA Overexertion from strenuous movement or load, initial encounter
CPT/HCPCS: 74176; 81001; 99284

== ENCOUNTER → 2019-11-01 | Outpatient (CLI) | payer MEDICARE, BC ==
--- NOTE | 2019-11-01 19:18 | MR ---
MR pelvis without contrast HISTORY: Pain in left hip, pain in right hip Correlation to plain film dated 08/22/2019, CT 10/04/2019 Degenerative disc changes are present at the lower lumbar spine and there are facet arthropathy cardoza es. The urinary bladder shows a thickened wall. There is motion artifact on the exam. Prostate is not seen. There is no evident hip joint effusion. Bone marrow signal is maintained. Articular cartilage is thou ght to be maintained. Difficult to exclude labral abnormality on this noncontrast exam, questionable para labral cyst noted on the right, exam ordered as pelvis rather than dedicated hip MRI. No definit e gluteal tendon tear. Origins of the hamstring musculature shows some intrinsic internal signal poss ibly due to chronic or remote trauma. IMPRESSION: Motion on exam. Degenerative disc disease, postop changes. Facet arthropathy. Possible ch ronic bladder outlet obstruction change within the bladder, correlate for possible cystitis. Addition al findings above.
== END | disposition home or self-care (01) ==
LOC: RADMRIMAIN 16:42
PROVIDERS: ATTEND Physician Assistant
DX: M25.552 Pain in left hip (principal); M25.551 Pain in right hip
CPT/HCPCS: 72195

== ENCOUNTER → 2020-04-15 | Outpatient (CLI) | payer MEDICARE, BC | END | disposition home or self-care (01) | LOC: LABWHC1 10:40 | PROVIDERS: ATTEND Urology | DX: C61 Malignant neoplasm of prostate (principal) | CPT/HCPCS: 36415; 84153 ==

== ENCOUNTER → 2020-06-28 | Outpatient (CLI) | payer MEDICARE, BC | END | disposition home or self-care (01) | LOC: LABWHC1 11:48 | PROVIDERS: ATTEND Urology | DX: C61 Malignant neoplasm of prostate (principal) | CPT/HCPCS: 36415; 84153 ==

== ENCOUNTER → 2020-08-09 | Outpatient (CLI) | payer MEDICARE, BC ==
--- NOTE | 2020-08-09 16:35 | CT ---
EXAMINATION TYPE: CT sinus wo con DATE OF EXAM: 08/09/2020 COMPARISON: None HISTORY: chronic sinus congestion CT DLP: 440.7 mGycm Automated exposure control for dose reduction was used. There is previous surgery on the medial wall of the maxillary sinuses. There is mucosal thickening in the maxillary ethmoid sinuses. Sphenoid sinus appears fairly normal. Minimal mucosal thickening seen in the right frontal sinus. The orbital margins are intact. I see no bony destructive process. There is no evidence of retro-orbital mass. There is fluid level in the left maxillary sinus. The maxilla is intact. IMPRESSION: Sinusitis as above. No focal bone destruction. Previous surgery.
== END | disposition home or self-care (01) ==
LOC: RADCTMAIN 16:14
PROVIDERS: ATTEND Otolaryngology
DX: J32.9 Chronic sinusitis, unspecified (principal)
CPT/HCPCS: 70486

== ENCOUNTER → 2020-09-12 | Day surgery (SDC) | payer MEDICARE, BC ==
[2020-09-10 12:10] VITALS: BMI 23.7
[~2020-09-12] MED LIST changes: +BACITRACIN ZINC 500 UNIT/GM OINT 28.4 GM TUBE TOPICAL ONE; +BUPIVACAINE (PF) 0.5% 30 ML VIAL SQ ONE; +DEXAMETHASONE SOD PHOSPHATE 10 MG/ML 1 ML VIAL ONE; +DEXAMETHASONE SOD PHOSPHATE 4 MG/ML 1 ML VIAL IV PRN; +DEXAMETHASONE SOD PHOSPHATE 4 MG/ML 1 ML VIAL IVP ONE; +EPINEPHrine 1 MG/ML (MDV) 30 ML VIAL TOPICAL ONE; +FAMOTIDINE 20 MG/2 ML VIAL IV PRN; +FLUORESCEIN STRIPS 1 MG STRIP MISCELLANE ONE; +HYDROmorphone 0.5 MG/0.5 ML SYRINGE IVP ONE; -HYDROmorphone 0.5 MG/0.5 ML SYRINGE IVP PRN; +LIDOCAINE 1% (10MG/ML) FOR IV START INTRADERMA ONE; -LIDOCAINE 1% (10MG/ML) FOR IV START INTRADERMA PRN; +LIDOCAINE 1% INJ 10MG/ML (20 ML MDV) ONE; +LIDOCAINE 2%-EPI 1:100,000 20 ML VIAL SUBMUCOSAL ONE; +MIDAZOLAM 2 MG/2 ML VIAL ONE; +ONDANSETRON 4 MG/2 ML VIAL IVP PRN; +PROPOFOL 10 MG/ML 20 ML VIAL IV ONE; +SUCCINYLCHOLINE CHLORIDE 100 MG/5 ML SYR IV ONE; +ePHEDrine SULFATE/0.9% NACL/PF 50 MG/5 ML SYRINGE IV ONE; +fentaNYL (PF) 50 MCG/ML 2 ML AMP ONE
[2020-09-12] MEDS: OXYMETAZOLINE 0.05% NASL SPRAY 1 SPRAY BOTTLE EA NOSTRIL PRN ×5 (09:25→09:45)
[2020-09-12 09:27] VITALS: RESP 16
--- NOTE | 2020-09-12 12:08 | P.OP ---
Date of Procedure: 09/12/20 Preoperative Diagnosis: Chronic maxillary ethmoid and frontal sinusitis with a right maxillary sinus cyst Postoperative Diagnosis: Same Procedure(s) Performed: Bilateral functional endoscopic sinus surgery of the bilateral maxillary total ethmoidectomies and frontal sinusotomies with removal of maxillary sinus cyst in the right along with diseased tissue Anesthesia: HOMAR Surgeon: Jose Ramon Taveras Estimated Blood Loss (ml): 10 Pathology: other (Sinonasal) Condition: stable Disposition: PACU Indications for Procedure: Patient has chronic sinusitis and was found have a sister polyp on the right maxillary sinus but evidence of chronic sinusitis throughout the frontal ethm oids and maxillary sinuses. Patient failed antibiotic therapy. The patient has had constant sinus problems for over 20 years and has failed medical therapy and is requesting sinus surgery. All risks, benefits, and alternative therapies were discussed. Consent was obtained and all questions were answered. Operative Findings: Patient had a cyst of the right maxillary sinus that was removed and marsupialized. Diseased tissue is seen throughout both maxillary sinuses total ethmoid region and frontals. Sinuses as described were opened explored and diseased tissue was removed. Patient had previous sinus surgery with removal of portions of the middle turbinates and a large amount of synechiae was seen. Much of this scar tissue was cleaned up today. Description of Procedure: Patient was taken to the operative room placed in the supine position. A general inhalation anesthetic was administered the patient by mask and subsequently intubated with a cuffed endotracheal tube by the department of anesthesia with a functioning IV line in place. Patient was monitored throughout the entire case by the department of anesthesia. The lateral nasal wall middle turbinates were injected with lidocaine 1% with epinephrine 1 100,000. 10 minutes were allowed wait for full vasoconstrictive effects to take place. At this time infraturbinal maxillary antrostomies were performed with a 0 Urias shaji scope. The maxillary sinuses were opened bilaterally cyst was removed from the right maxillary sinus. All diseased tissue was removed and pus was removed also. We then opened up the supraturbinal excellent antrostomy and diseased tissue was also removed. Purulence was suctioned. We then opened up the ethmoids bilaterally the patient had a very low-lying dura medially and the ethmoids were opened quite nicely. Polypoid material was removed. After the total ethmoidectomies were performed and all ethmoid septations were removed manuelito aterally we then opened up the frontal sinuses bilaterally we utilized to ballooned her first obtain an opening so we feel wide widened them even further once the front nasal frontal ducts were opened with the microdebrider and up- biting Gobler and dressed with a 30 Urias shaji scope for visualization we entered the frontal sinuses and removed diseased tissue from the frontal sinuses bilaterally to summarize the frontal sinuses all ethmoid sinuses and maxillary sinuses were open diseased tissue was removed and polyps were removed from the ethmoid sinuses. Jose Ramon purulence was removed and the patient tolerated this well xerogel was placed bilaterally and a follow-up is scheduled for 1 week.
[2020-09-12 12:11] VITALS: TEMP 99.1
[2020-09-12 13:37] VITALS: BP 125/75; PULSE 76
== END | disposition home or self-care (01) ==
LOC: OR 08:47
PROVIDERS: ATTEND Otolaryngology
DX: J32.9 Chronic sinusitis, unspecified (principal); J34.1 Cyst and mucocele of nose and nasal sinus; F32.9 Major depressive disorder, single episode, unspecified; F17.210 Nicotine dependence, cigarettes, uncomplicated; N42.9 Disorder of prostate, unspecified; D36.10 Benign neoplasm of peripheral nerves and autonomic nervous system, unspecified; M19.90 Unspecified osteoarthritis, unspecified site; Z85.828 Personal history of other malignant neoplasm of skin; Z79.1 Long term (current) use of non-steroidal anti-inflammatories (NSAID); Z97.2 Presence of dental prosthetic device (complete) (partial); Z79.899 Other long term (current) drug therapy; Z88.1 Allergy status to other antibiotic agents
CPT/HCPCS: 31267; 31253; 88305; C1726; J0171; J2250; J1100 ×2; J2405; J0690; J2001; J3010; J0330; J2704; J1170

== ENCOUNTER → 2022-04-07 | Outpatient (CLI) | payer MEDICARE, BC | END | disposition home or self-care (01) | LOC: LABWHC1 15:37 | PROVIDERS: ATTEND Urology | DX: C61 Malignant neoplasm of prostate (principal) | CPT/HCPCS: 36415; 84153 ==

== ENCOUNTER → 2024-06-08 | Outpatient (CLI) | payer MEDICARE, BC | END | disposition home or self-care (01) | LOC: LABWHC1 10:15 | PROVIDERS: ATTEND Urology | DX: C61 Malignant neoplasm of prostate (principal) | CPT/HCPCS: 36415; 84153 ==